=== PATIENT | male | born 1955 | race Two or more races ===

== ENCOUNTER 2016-09-12 09:14 | Emergency (ER) | payer MEDICAID ==
[~2016-09-12] VITALS: Ht 162.6 cm; Wt 90.7 kg
[~2016-09-12 09:14] MED LIST: ENAL-3 PO; MECL-87 PO; METH750T3 PO; NAPR-607 PO; PRAV20TA3 PO
[2016-09-12] MEDS ORDERED: SODIUM CHLORIDE 0.9% 1,000 ML IV ONE (09:50)
[2016-09-12 10:00] LABS: Basophils # (auto) 0 uL; Basophils % (auto) 0.6 % (0.0-2.0); Eosinophils # (auto) 0.1 uL; Eosinophils % (auto) 0.8 % (0.0-7.0); Hematocrit 45.8 % (41.0-53.0); Hemoglobin 15.6 g/dL (13.5-17.5); Lymphocytes # (auto) 2.6 uL; Lymphocytes % (auto) 36.7 % (10.0-50.0); Mean Corpuscular Hemoglobin 31.4 pg (28.0-32.0); Mean Corpuscular Hgb Conc. 34.1 g/dL (32.0-36.0); Mean Corpuscular Volume 92.3 fL (80.0-100.0); Mean Platelet Volume 7.5 fL (7.4-10.4); Monocytes # (auto) 0.5 uL; Monocytes % (auto) 6.9 % (0.0-12.0); Neutrophils # (auto) 3.9 uL; Platelet Count (auto) 277 10^3/uL (140-450); Red Cell Distribution Width 13.9 % (11.6-16.0)
[2016-09-12] MEDS ORDERED: DONNATAL 5ml ORAL Elix (BELLADONNA ALK-PHENOBARB) PO ONE (10:00)
[2016-09-12] MEDS ORDERED: ALUM & MAG HYDROX-SIMETH LIQ(MAALOX) 30 ML PO ONE (10:00)
[2016-09-12] MEDS ORDERED: LIDOCAINE VISCOUS 2% 15ML UD PO ONE (10:00)
[2016-09-12 10:23] LABS: Albumin 4.1 g/dL (3.4-5.0); BUN/Creatinine Ratio 11.4; Bilirubin, Total 0.6 mg/dL (0.2-1.0); Calcium 9.1 mg/dL (8.5-10.1); Potassium 4.2 mmol/L (3.5-5.1); Total Protein 7.8 g/dL (6.4-8.2)
[2016-09-12 10:29] VITALS: BP 154/91
[2016-09-12 10:30] LABS: Urine Bilirubin Negative (Negative); Urine Blood Negative /uL (Negative); Urine Color Yellow (Yellow); Urine Glucose Normal (Normal); Urine Ketone Negative (Negative); Urine Nitrite Negative (Negative); Urine RBC <1 /hpf (0 - 3); Urine Urobilinogen Normal (Negative); Urine pH 5.5 (5.0-8.0)
== END 2016-09-12 11:27 | disposition home or self-care (01) ==
LOC: ER 09:19
DX: K29.70 Gastritis, unspecified, without bleeding (principal); E78.5 Hyperlipidemia, unspecified; I10 Essential (primary) hypertension; Z98.890 Other specified postprocedural states
CPT/HCPCS: 36415; 71010; 80053; 81001; 83690; 84484; 85025; 86677; 93005; 96360; 99285; J7030

== ENCOUNTER 2017-07-18 15:22 | Inpatient (IN) | payer MEDICAID ==
[~2017-07-18] VITALS: Ht 160 cm; Wt 96.7 kg
[~2017-07-18 15:22] MED LIST changes: -NAPR-607 PO; +NAPR500T31 PO
[2017-07-18 16:13] LABS: Basophils # (auto) 0 uL; Basophils % (auto) 0.1 % (0.0-2.0); Eosinophils # (auto) 0.1 uL; Hematocrit 45.1 % (41.0-53.0); Hemoglobin 15.2 g/dL (13.5-17.5); Lymphocytes # (auto) 2.7 uL; Lymphocytes % (auto) 35.2 % (10.0-50.0); Mean Corpuscular Hemoglobin 31.8 pg (28.0-32.0); Mean Corpuscular Hgb Conc. 33.7 g/dL (32.0-36.0); Mean Corpuscular Volume 94.6 fL (80.0-100.0); Monocytes # (auto) 0.7 uL; Monocytes % (auto) 9.6 % (0.0-12.0); Neutrophils # (auto) 4.1 uL; Neutrophils % (auto) 54.1 % (37.0-80.0); Nucleated Red Blood Cells % 0.1 %; Platelet Count (auto) 277 10^3/uL (140-450); Red Blood Cells 4.77 10^6/uL (4.5-5.90); Red Cell Distribution Width 13.4 % (11.8-14.3); White Blood Cell 7.5 10^3/uL (4.4-10.8)
[2017-07-18 16:34] LABS: Alanine Aminotransferase 35 U/L (16-61); Alkaline Phosphatase 79 U/L (45-117); Anion Gap 8 (5-15); Aspartate Aminotransferase 22 U/L (15-37); BUN/Creatinine Ratio 14.9; Bilirubin, Total 0.3 mg/dL (0.2-1.0); Blood Urea Nitrogen 15 mg/dL (7-18); Calcium 8.6 mg/dL (8.5-10.1); Carbon Dioxide 25 mmol/L (21-32); Chloride 106 mmol/L (98-107); GFR African American 96 mL/min; GFR Non-African American 79 mL/min; Glucose 96 mg/dL (74-106); Magnesium 2.7 mg/dL (1.6-2.6); Potassium 3.9 mmol/L (3.5-5.1); Sodium 139 mmol/L (136-145); Total Protein 7.7 g/dL (6.4-8.2)
[2017-07-18] MEDS ORDERED: PIPERACILLIN-TAZOB 3.375GM 50 ML IV ONE (19:00)
[2017-07-18] MEDS ORDERED: predniSONE 20 MG TAB PO ONE (19:00)
[2017-07-18] MEDS ORDERED: HYDROcodone-ACET 5/325MG TAB PO PRN (21:30)
[2017-07-18] MEDS ORDERED: ACETAMINOPHEN 500 MG TAB PO PRN (21:30)
[2017-07-18] MEDS ORDERED: ONDANSETRON HCL 4 MG/2 ML VIAL IV PRN (21:30)
[2017-07-18 21:36] LABS: Urine Bacteria NONE SEEN /hpf (None Seen); Urine Blood Negative /uL (Negative); Urine Mucus FEW (None Seen); Urine Specific Gravity 1.022 (1.001-1.035); Urine WBC <1 /hpf (0 - 3)
[2017-07-18] MEDS ORDERED: PANTOPRAZOLE 40 MG TAB PO ONE (21:45)
[2017-07-18] MEDS ORDERED: ENALAPRIL MALEATE 10 MG TAB PO ONE (21:45)
[2017-07-18] MEDS ORDERED: TAMSULOSIN HYDROCHLORIDE 0.4 MG CAP PO ONE (21:45)
[2017-07-18] MEDS ORDERED: ASPirin-EC 81 mg tab PO ONE (21:45)
[2017-07-18] MEDS: SODIUM CHLORIDE 0.9% 1,000 ML IV SCH (22:21)
[2017-07-18] MEDS: cefTRIAXone 1GM/10ml IVPUSH 10 ML IV SCH (22:30)
[2017-07-18 23:00] VITALS: BP 152/95
[2017-07-18] MEDS: metroNIDAZOLE 500MG/100ML 100 ML IV SCH (23:18)
[2017-07-19 05:00] VITALS: BP 102/63
[2017-07-19] MEDS: metroNIDAZOLE 500MG/100ML 100 ML IV SCH ×3 (05:47→22:04)
[2017-07-19 05:54] LABS: Basophils # (auto) 0 uL; Basophils % (auto) 0.2 % (0.0-2.0); Eosinophils # (auto) 0 uL; Hematocrit 44.5 % (41.0-53.0); Hemoglobin 15.1 g/dL (13.5-17.5); Lymphocytes # (auto) 1.2 uL; Lymphocytes % (auto) 17.9 % (10.0-50.0); Mean Corpuscular Hgb Conc. 33.9 g/dL (32.0-36.0); Mean Corpuscular Volume 94.4 fL (80.0-100.0); Monocytes # (auto) 0.1 uL; Monocytes % (auto) 2.1 % (0.0-12.0); Neutrophils # (auto) 5.5 uL; Neutrophils % (auto) 79.8 % (37.0-80.0); Nucleated Red Blood Cells % 0.1 %; Platelet Count (auto) 272 10^3/uL (140-450); Red Blood Cells 4.72 10^6/uL (4.5-5.90); Red Cell Distribution Width 13.2 % (11.8-14.3); White Blood Cell 6.9 10^3/uL (4.4-10.8)
[2017-07-19 06:21] LABS: BUN/Creatinine Ratio 14.9; Calcium 8.5 mg/dL (8.5-10.1); Potassium 4.2 mmol/L (3.5-5.1)
[2017-07-19] MEDS: SODIUM CHLORIDE 0.9% 1,000 ML IV SCH ×2 (07:30→19:00)
[2017-07-19 08:00] VITALS: BP 110/64
[2017-07-19 08:05] VITALS: BP 108/51
[2017-07-19] MEDS: cefTRIAXone 1GM/10ml IVPUSH 10 ML IV SCH (09:56)
[2017-07-19] MEDS: ENALAPRIL MALEATE 10 MG TAB PO SCH (10:00)
[2017-07-19] MEDS: PANTOPRAZOLE 40 MG TAB PO SCH (10:01)
[2017-07-19] MEDS: ASPirin-EC 81 mg tab PO SCH (10:01)
[2017-07-19 12:10] VITALS: BP 110/63
[2017-07-19] MEDS ORDERED: GOLYTELY 4L KIT PO ONE (14:00)
[2017-07-19] MEDS ORDERED: ENAL2.5T PO (16:05)
[2017-07-19] MEDS ORDERED: ASPI81TA27 PO (16:05)
[2017-07-19] MEDS ORDERED: CETI10TA93 PO (16:05)
[2017-07-19] MEDS ORDERED: SUCR1TAB PO (16:05)
[2017-07-19] MEDS ORDERED: FINA5TAB4 PO (16:05)
[2017-07-19] MEDS ORDERED: IBUP800T24 PO (16:05)
[2017-07-19] MEDS ORDERED: PRAV20TA3 PO (16:05)
[2017-07-19] MEDS ORDERED: TAMS0.4C36 PO (16:05)
[2017-07-19] MEDS ORDERED: FAMO10TA PO (16:05)
[2017-07-19] MEDS: TAMSULOSIN HYDROCHLORIDE 0.4 MG CAP PO SCH (18:34)
[2017-07-19 20:00] VITALS: BP 146/93
[2017-07-19 22:06] VITALS: BP 140/93
[2017-07-20] MEDS: SODIUM CHLORIDE 0.9% 1,000 ML IV SCH ×3 (03:30→23:30)
[2017-07-20 05:06] VITALS: BP 107/62
[2017-07-20] MEDS: metroNIDAZOLE 500MG/100ML 100 ML IV SCH ×3 (05:35→22:00)
[2017-07-20 05:56] LABS: Basophils # (auto) 0 uL; Basophils % (auto) 0.4 % (0.0-2.0); Eosinophils # (auto) 0.1 uL; Eosinophils % (auto) 1.1 % (0.0-7.0); Hematocrit 40.7 % (41.0-53.0); Hemoglobin 13.9 g/dL (13.5-17.5); Lymphocytes # (auto) 2.4 uL; Lymphocytes % (auto) 34.1 % (10.0-50.0); Mean Corpuscular Hemoglobin 32.2 pg (28.0-32.0); Mean Corpuscular Hgb Conc. 34.2 g/dL (32.0-36.0); Mean Corpuscular Volume 94.1 fL (80.0-100.0); Monocytes # (auto) 0.6 uL; Monocytes % (auto) 9.2 % (0.0-12.0); Neutrophils # (auto) 3.9 uL; Neutrophils % (auto) 55.2 % (37.0-80.0); Nucleated Red Blood Cells % 0.1 %; Platelet Count (auto) 227 10^3/uL (140-450); Red Blood Cells 4.32 10^6/uL (4.5-5.90); Red Cell Distribution Width 13.1 % (11.8-14.3)
[2017-07-20] MEDS ORDERED: GOLYTELY 4L KIT PO ONE (06:00)
[2017-07-20 06:13] LABS: Albumin 3.1 g/dL (3.4-5.0); Calcium 8.3 mg/dL (8.5-10.1); Potassium 3.8 mmol/L (3.5-5.1)
[2017-07-20 06:50] LABS: BUN/Creatinine Ratio 11.2; Bilirubin, Total 0.5 mg/dL (0.2-1.0); Total Protein 5.9 g/dL (6.4-8.2)
[2017-07-20] MEDS ORDERED: SODIUM CHLORIDE LOCK 10 ML ONE (08:18)
[2017-07-20] MEDS ORDERED: diphenhdrAMINE HCL 50 MG/1 ML VL ONE (08:19)
[2017-07-20 09:00] VITALS: BP 125/73
[2017-07-20 09:53] LABS: Partial Thromboplastin Time 25.6 sec (22.64-33.71); Prothrombin Time 10.9 sec (9.37-12.3)
[2017-07-20 10:00] VITALS: BP 125/73
[2017-07-20] MEDS: MIDAZOLAM HCL 5 MG/ML-1ML VIAL ONE ×3 (10:06→10:13)
[2017-07-20] MEDS: fentaNYL CITRATE 100 MCG/2 ML VL ONE ×3 (10:06→10:13)
[2017-07-20] MEDS: ENALAPRIL MALEATE 10 MG TAB PO SCH (11:13)
[2017-07-20] MEDS: PANTOPRAZOLE 40 MG TAB PO SCH (11:13)
[2017-07-20] MEDS: ASPirin-EC 81 mg tab PO SCH (11:13)
[2017-07-20] MEDS: cefTRIAXone 1GM/10ml IVPUSH 10 ML IV SCH (11:13)
[2017-07-20 13:00] VITALS: BP 106/66
[2017-07-20 17:00] VITALS: BP 93/47
[2017-07-20] MEDS: TAMSULOSIN HYDROCHLORIDE 0.4 MG CAP PO SCH (17:32)
[2017-07-20 22:00] VITALS: BP 117/66
[2017-07-21 05:00] VITALS: BP 111/65
[2017-07-21 06:36] LABS: Basophils # (auto) 0 uL; Basophils % (auto) 0.6 % (0.0-2.0); Eosinophils # (auto) 0.1 uL; Eosinophils % (auto) 1.7 % (0.0-7.0); Hematocrit 41.3 % (41.0-53.0); Lymphocytes # (auto) 2.1 uL; Lymphocytes % (auto) 27.9 % (10.0-50.0); Mean Corpuscular Hemoglobin 32.3 pg (28.0-32.0); Monocytes # (auto) 0.7 uL; Monocytes % (auto) 9.8 % (0.0-12.0); Neutrophils # (auto) 4.4 uL; Nucleated Red Blood Cells % 0.3 %; Platelet Count (auto) 232 10^3/uL (140-450); Red Blood Cells 4.35 10^6/uL (4.5-5.90); Red Cell Distribution Width 13.2 % (11.8-14.3); White Blood Cell 7.3 10^3/uL (4.4-10.8)
[2017-07-21 06:53] LABS: Potassium 3.9 mmol/L (3.5-5.1)
[2017-07-21 06:56] LABS: BUN/Creatinine Ratio 18.8; Calcium 8.6 mg/dL (8.5-10.1)
[2017-07-21] MEDS: cefTRIAXone 1GM/10ml IVPUSH 10 ML IV SCH (08:32)
[2017-07-21] MEDS: metroNIDAZOLE 500MG/100ML 100 ML IV SCH ×2 (08:36→14:14)
[2017-07-21 09:00] VITALS: BP 113/71
[2017-07-21] MEDS: PANTOPRAZOLE 40 MG TAB PO SCH (09:22)
[2017-07-21] MEDS: ASPirin-EC 81 mg tab PO SCH (09:22)
[2017-07-21] MEDS: ENALAPRIL MALEATE 10 MG TAB PO SCH (09:23)
[2017-07-21] MEDS: SODIUM CHLORIDE 0.9% 1,000 ML IV SCH (09:30)
[2017-07-21 14:36] VITALS: BP 120/64
== END 2017-07-21 17:22 | disposition home or self-care (01) | DRG 253 ==
LOC: ER 15:28 → OVERFLOW 15:29 → WEST WING 22:43
PROVIDERS: ADMIT Nurse Practitioner Family; ATTEND Internal Medicine
PROC: 0DJD8ZZ Inspection of Lower Intestinal Tract, Via Natural or Artificial Opening Endoscopic (ICD-10-PCS; principal; 2017-07-20 10:04)
DX: K62.5 Hemorrhage of anus and rectum (principal); E44.1 Mild protein-calorie malnutrition; I10 Essential (primary) hypertension; K57.30 Diverticulosis of large intestine without perforation or abscess without bleeding; G51.0 Bell's palsy; E78.5 Hyperlipidemia, unspecified; I25.10 Atherosclerotic heart disease of native coronary artery without angina pectoris; K52.9 Noninfective gastroenteritis and colitis, unspecified; Z68.37 Body mass index [BMI] 37.0-37.9, adult; Z79.899 Other long term (current) drug therapy; Z98.61 Coronary angioplasty status
CPT/HCPCS: 36415; 45378; 70450; 74176; 80048; 80053; 81001; 82270; 83605; 83735; 84484; 85025; 85610; 85730; 87040; 93005; 96374; J2250; J2543; J3490

== ENCOUNTER 2018-03-27 18:55 | Emergency (ER) | payer MEDICAID ==
[~2018-03-27] VITALS: Ht 162.6 cm; Wt 90.7 kg
[~2018-03-27 18:55] MED LIST changes: +ASPI81TA27 PO; +CETI10TA93 PO; -ENAL-3 PO; +ENAL2.5T PO; +FAMO10TA PO; +FINA5TAB4 PO; +IBUP800T24 PO; -MECL-87 PO; -METH750T3 PO; -NAPR500T31 PO; +SUCR1TAB PO; +TAMS0.4C36 PO
[2018-03-27 19:42] LABS: Basophils # (auto) 0.1 uL; Basophils % (auto) 0.7 % (0.0-2.0); Eosinophils # (auto) 0.1 uL; Eosinophils % (auto) 1.1 % (0.0-7.0); Hematocrit 42.5 % (41.0-53.0); Hemoglobin 14.6 g/dL (13.5-17.5); Lymphocytes # (auto) 1.6 uL; Lymphocytes % (auto) 22.9 % (10.0-50.0); Mean Corpuscular Hemoglobin 32.3 pg (28.0-32.0); Mean Corpuscular Hgb Conc. 34.4 g/dL (32.0-36.0); Mean Corpuscular Volume 93.7 fL (80.0-100.0); Monocytes # (auto) 0.5 uL; Monocytes % (auto) 7.6 % (0.0-12.0); Neutrophils # (auto) 4.8 uL; Neutrophils % (auto) 67.7 % (37.0-80.0); Nucleated Red Blood Cells % 0.1 %; Platelet Count (auto) 233 10^3/uL (140-450); Red Blood Cells 4.54 10^6/uL (4.5-5.90); Red Cell Distribution Width 13.4 % (11.8-14.3); White Blood Cell 7.1 10^3/uL (4.4-10.8)
[2018-03-27 19:57] LABS: Partial Thromboplastin Time 25.9 sec (23.78-33.04); Prothrombin Time 10.7 sec (9.27-12.13)
[2018-03-27 19:58] LABS: Alanine Aminotransferase 30 U/L (16-61); Albumin 3.8 g/dL (3.4-5.0); Anion Gap 8 (5-15); Aspartate Aminotransferase 26 U/L (15-37); BUN/Creatinine Ratio 12.1; Blood Urea Nitrogen 13 mg/dL (7-18); Calcium 8.6 mg/dL (8.5-10.1); Carbon Dioxide 26 mmol/L (21-32); Chloride 108 mmol/L (98-107); GFR African American 89 mL/min; GFR Non-African American 74 mL/min; Glucose 126 mg/dL (74-106); Magnesium 2.1 mg/dL (1.6-2.6); Potassium 3.8 mmol/L (3.5-5.1); Sodium 142 mmol/L (136-145)
[2018-03-27 20:03] LABS: Alkaline Phosphatase 75 U/L (45-117); Bilirubin, Total 0.4 mg/dL (0.2-1.0); Total Protein 7.1 g/dL (6.4-8.2)
[2018-03-27] MEDS ORDERED: IOHEXOL 300 MG/ML 100ML BOTTLE IJ ONE (20:14)
[2018-03-27] MEDS ORDERED: MORPHINE SULFATE 4 MG/ML SYR/VIAL IV ONE (20:15)
[2018-03-27] MEDS ORDERED: ONDANSETRON HCL 4 MG/2 ML VIAL IV ONE (20:15)
[2018-03-27 21:36] VITALS: BP 121/61
[2018-03-27 22:40] LABS: Urine Bacteria NONE SEEN /hpf (None Seen); Urine Blood Negative /uL (Negative); Urine Specific Gravity 1.027 (1.001-1.035); Urine WBC <1 /hpf (0 - 3)
== END 2018-03-27 22:11 | disposition home or self-care (01) ==
LOC: ER 18:55
DX: R07.89 Other chest pain (principal); M47.894 Other spondylosis, thoracic region; R10.31 Right lower quadrant pain; R10.11 Right upper quadrant pain; I25.10 Atherosclerotic heart disease of native coronary artery without angina pectoris; E78.5 Hyperlipidemia, unspecified; I10 Essential (primary) hypertension; Z98.61 Coronary angioplasty status; Z79.899 Other long term (current) drug therapy
CPT/HCPCS: 36415; 71260; 80053; 81001; 83735; 83880; 84443; 84484; 85025; 85379; 85610; 85730; 93005; 96374; 96375; 99285; J2270; J2405; Q9967